=== PATIENT | male | born 1955 | race Caucasian/White ===

== ENCOUNTER 2021-12-11 08:25 | Emergency (ER) | payer OTHER ==
[~2021-12-11] VITALS: Ht 188 cm; Wt 81.6 kg
[2021-12-11 08:25] VITALS: BP 151/92
--- NOTE | 2021-12-11 08:30 | NUR ---
BIBA TO BED 4.
--- NOTE | 2021-12-11 08:32 | NUR ---
DIRECT MARKETING ANALYST AT PT BEDSIDE.
[2021-12-11] MEDS ORDERED: NACL 0.9% 1,000 ML IV ONE (08:35)
--- NOTE | 2021-12-11 08:35 | NUR ---
66 Y/O MALE BIBA FROM HOME C/O TONIC CLONIC SEIZURE WITNESSED BY PT GIRLFRIEND AT HOME [id number]. PER FIRE ON ARRIVAL PT POSTICTAL AND INCONTINENCE X2 PLACED ON 15L O2 NRB. PT SP02 100%. IV ESTABLISHED TO L AC 20G BY FIRE SL. NO RX GIVEN. PT IS A&OX2, GCS 12. PER PT PT RECEIVED COVID BOOSTER X1DAY AGO AND FELT GEN WEAK AND BODY PAIN. DENIES PMH NKA
[2021-12-11 08:57] LABS: BASOPHILS # (AUTO) 0.1 K/uL (0.00-0.22); EOSINOPHILS # (AUTO) 0.3 K/uL (0-0.4); EOSINOPHILS % (AUTO) 2.2 % (0.0-4.0); HEMATOCRIT 43.1 % (36-52); HEMOGLOBIN 14.3 g/dL (12.0-18.0); LYMPHOCYTES # (AUTO) 2.4 K/uL (2.0-11.5); LYMPHOCYTES % (AUTO) 17.9 % (20.5-51.1); MEAN CORPUSCULAR HEMOGLOBIN 33 pg (27-31); MEAN CORPUSCULAR HGB CONC 33 g/dL (33-37); MEAN CORPUSCULAR VOLUME 98.3 fL (80-94); MONOCYTES % (AUTO) 7.3 % (1.7-9.3); NEUTROPHILS # (AUTO) 9.7 K/uL (1.8-7.7); NEUTROPHILS % (AUTO) 71.6 % (42.2-75.2); PLATELET COUNT (AUTO) 182 K/uL (140-450); RED BLOOD CELL COUNT(AUTO) 4.38 MIL/uL (4.20-6.10); RED CELL DISTRIBUTION WIDTH 15.7 % (11.6-13.7); WHITE BLOOD COUNT (AUTO) 13.5 K/uL (4.8-10.8)
--- NOTE | 2021-12-11 08:59 | NUR ---
SENIOR MANUFACTURING ENGINEER AT PT BEDSIDE.
--- NOTE | 2021-12-11 09:00 | NUR ---
PT TITRATED TO 5L NC, SPO2 97%. WILL CONTINUE TO MONITOR.
[2021-12-11] MEDS ORDERED: levETIRAcetam 1,000 MG in NACL 0.9% 100 ML IV ONE (09:15)
--- NOTE | 2021-12-11 09:25 | NUR ---
GAVINO SPECIMEN COLLECTED AND WALKED TO LAB.
[2021-12-11 09:28] LABS: ALBUMIN 3.4 g/dL (3.4-5.0); ASPARTATE AMINOTRANSFERASE 38 U/L (15-37); CARBON DIOXIDE 16.2 mmol/L (21-32); CHLORIDE 102 mmol/L (98-107); GFR ARICAN-AMERICAN 96 mL/min (>90); GLUCOSE 126 mg/dL (74-106); POTASSIUM 4.2 mmol/L (3.5-5.1); SODIUM SERUM 137 mmol/L (136-145); TOTAL BILIRUBIN 0.9 mg/dL (0.0-1.0); UREA NITROGEN, BLOOD 5 mg/dL (7-18)
--- NOTE | 2021-12-11 09:32 | NUR ---
66 Y/O MALE BIBA FROM HOME D/T TONIC CLONIC SEIZURE. SEIZURE WAS WITNESSED BY PATIENTS GIRLFRIEND AT HOME. PER EMS WAS INCONTINENT AND PLACED ON 15L OF OXYGEN VIA NON-REBREATHER. PATIENTS O2 IS 100%. PATIENT IS AAOX2. PATIENT HAD COVID BOOSTER SHOT X1 DAY. MEDICAL HISTORY: DENIES NKA
--- NOTE | 2021-12-11 09:37 | NUR ---
URINE COLLECTED AND WALKED TO LAB
[2021-12-11 09:46] LABS: SALICYLATE < 2.8 mg/dL (2.8-20.0)
[2021-12-11 10:10] LABS: ACETAMINOPHEN < 0.5 ug/ml (10-30)
--- NOTE | 2021-12-11 10:27 | NUR ---
MOVED TO ER BED 1
[2021-12-11 10:28] LABS: BARBITURATE, URINE NEGATIVE ng/ml (NEG <=200); BENZODIAZEPINE, URINE NEGATIVE ng/mL (NEG <=200)
[2021-12-11 10:29] LABS: CANNABINOID, URINE POSITIVE ng/mL (NEG <=50); COCAINE, URINE NEGATIVE ng/mL (NEG <=300); OPIATE, URINE NEGATIVE ng/mL (NEG <=2000); PHENCYCLIDINE SCREEN,URINE NEGATIVE ng/mL (NEG <=25)
--- NOTE | 2021-12-11 10:39 | NUR ---
PT REASSESED, VSS, WILL CONTINUE TO MONITOR. PT RA SPO2 100%.
[2021-12-11] MEDS ORDERED: chlordiazePOXIDE 25 MG CAP PO SCH ×2 (10:45→13:00)
[2021-12-11] MEDS ORDERED: ACETAMINOPHEN EXTRA STRENGTH 500 MG TAB PO ONE (10:45)
[2021-12-11 12:22] VITALS: BP 154/91
--- NOTE | 2021-12-11 12:22 | NUR ---
Patient discharged with v/s stable. Written and verbal after care instructions given FOR ALCOHOL ABUSE AND NUTRITIO, DEPENDANCE INFORMATION and explained. Patient verbalized understanding. Ambulatory with steady gait. All questions addressed prior to discharge. Advised to follow up with PMD.
--- NOTE | 2021-12-11 12:27 | NUR ---
The patient's care was reviewed and supervised by Charlotte Fleming RN.
--- NOTE | 2021-12-14 10:13 | NUR ---
LATE ENTERY-IVF END TIME
== END 2021-12-11 12:22 | disposition home or self-care (01) ==
LOC: MED 08:25
DX: G40.89 Other seizures (principal); Z20.822 Contact with and (suspected) exposure to COVID-19; F10.10 Alcohol abuse, uncomplicated
CPT/HCPCS: 36415; 71045; 80053; 80305; 82948; 85025; 87426; 93005; 96361; 96374; 99291; G0480; G0482; J1953; J7030; Q0092; 99285